=== PATIENT | female | born 1935 | race Caucasian/White ===

== ENCOUNTER 2016-12-22 15:35 | Inpatient (IN) | payer MEDICARE ==
[2016-12-22] MEDS ORDERED: Melatonin 3 MG TAB PO PRN (17:23)
[2016-12-22] MEDS: Gabapentin 100 MG CAP PO SCH (20:51)
[2016-12-22] MEDS: Ferrous Gluconate 324 MG TAB PO SCH (20:51)
[2016-12-22] MEDS: Apixaban 5 MG TAB PO SCH (20:51)
[2016-12-22] MEDS: traMADol HCl 50 MG TAB PO PRN (23:53)
[2016-12-23] MEDS: Apixaban 5 MG TAB PO SCH ×2 (08:58→21:44)
[2016-12-23] MEDS: Nebivolol HCl 5 MG TAB PO SCH (08:59)
[2016-12-23] MEDS: Ferrous Gluconate 324 MG TAB PO SCH ×2 (08:59→21:44)
[2016-12-23] MEDS: Multivit, Therapeutic 1 TAB PO SCH (09:00)
[2016-12-23] MEDS: traMADol HCl 50 MG TAB PO PRN (11:25)
[2016-12-23] MEDS ORDERED: [UNRECOGNIZED DRUG - OTHER] SSW PRN ×4 (18:35)
[2016-12-23] MEDS ORDERED: ALUMINUM SSW PRN ×4 (18:35)
[2016-12-23] MEDS ORDERED: MAGNESIUM HYDROXIDE SSW PRN ×4 (18:35)
[2016-12-23] MEDS ORDERED: DIPHENHYDRAMINE HCL SSW PRN ×4 (18:35)
[2016-12-23] MEDS: Gabapentin 100 MG CAP PO SCH (21:45)
[2016-12-24] MEDS: traMADol HCl 50 MG TAB PO PRN ×3 (00:28→13:50)
--- NOTE | 2016-12-24 04:10 | HP ---
PRIMARY CARE PHYSICIAN: Kelsi Grullon M.D. ADMITTING PHYSICIAN: Macey Vazquez M.D. CHIEF COMPLAINT: Inpatient rehab with prison care, physical, and occupational therapy, status post revision of left total hip. HISTORY OF PRESENT ILLNESS: Ms. Doan is a pleasant 81-year-old female with history of paroxysmal atrial fibrillation on chronic anticoagulation , hypertension, hyperlipidemia, and gastroesophageal reflux disease. 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 Espinoza Anaya. On review of history, she had a remote left hip surgery about 20 years ago and has been having intermittent left hip pain. Recently, she had sudden severe pain on her left thigh with difficulty in ambulation. She consulted Dr. Anaya and was in form of the deterioration of left hip and needing immediate surgery. She had uneventful operation. She started physical therapy on 12/15/2016 and was working on transfer; however, she developed hypotension and hypoxemia during therapy. She was subsequently referred to hospitalist group and Dr. Nair. They held the blood pressure medication due to her borderline hypertension. Her blood pressure gradually normalized. During that time, she developed neurogenic bladder, indwelling catheter was placed. The patient required minimal assist from supine to sleeping, moderate assistance from sitting to standing and from bed to chair transfers. Prior to her transfer, she is standing using rolling walker with 25% weightbearing on left lower extremity. She has decreased mobility, endurance, poor gait, has poor range of motion, decreased strength and decreased transfer ability. She will continue with physical and occupational therapy prior to transitioning to half-way versus assisted living with Home Health with physical therapy. She was transferred to our facility on 12/22/2016. Today, she reports poor appetite, requesting to discontinue the indwelling catheter. She reported that today was far better therapy since her surgery. She is also complaining of sensitivity to her mouth, with no obvious lesions. PAST MEDICAL HISTORY: 1. Paroxysmal atrial fibrillation. 2. Hypertension. 3. Hyperlipidemia. 4. Gastroesophageal reflux disease. 5. Obesity. 6. Mild cognitive impairment. 7. Degenerative joint disease. 8. History of venous insufficiency. 9. History of hyperglycemia. 10. History of TIA. SOCIAL HISTORY: Elderly living alone. Nonsmoker, nonalcoholic drinker. She lives independently in [place], she has a daughter that lives in [place]. She uses a cane occasionally for support. ALLERGIES: 1. CODEINE causing hallucinations. 2. ERYTHROMYCIN causing inflammation of gums and roof of mouth. 3. PENICILLIN. FAMILY HISTORY: Father due to natural causes. Mother due to kidney disease. Has a daughter and healthy. PAST SURGICAL HISTORY: 1. Recent revision of left total hip. 2. Left total hip replacement in 1995. 2. Right total hip replacement in 1998. 3. Spine surgery. 4. Tonsillectomy. 5. Appendectomy. 6. Fistula. 7. Cataract surgery. 8. Cervical fusion. MEDICATIONS: 1. Tylenol 650 mg q.6 h. p.r.n. for pain. 2. Eliquis 2.5 mg b.i.d. 3. Ferrous sulfate 324 mg b.i.d. 4. Neurontin 100 mg at bedtime. 5. Melatonin 3 mg at bedtime p.r.n. for insomnia. 6. Multivitamins daily. 7. Bystolic 5 mg daily. 8. Benicar 20 mg daily. 9. Protonix 40 mg daily. 10. Tramadol 50 mg at bedtime. REVIEW OF SYSTEMS: GENERAL: Patient denies fever, positive for decreased appetite. Denies any weight loss or gain. HEENT: No headaches. Positive for blurred vision. Positive for sensitivity in the buccal mucosa and gums. CARDIOVASCULAR: No chest pain. No palpitation. Positive for irregular heartbeat. RESPIRATORY: Denies shortness of breath. Denies wheezing. GASTROINTESTINAL: Positive for decreased appetite. No nausea, vomiting or diarrhea. No constipation. GENITOURINARY: Positive for indwelling catheter. Denies dysuria. Denies hematuria. INTEGUMENT: No rash or lesions. PSYCHIATRIC: Denies anxiety. Denies depression. NEUROLOGIC: Positive for memory loss. Negative for seizures. MUSCULOSKELETAL: Positive for left hip pain secondary to recent surgery. Denies weakness. PHYSICAL EXAMINATION: VITAL SIGNS: Blood pressure of 126/72, heart rate of 72, respiratory rate of 18 , O2 sat 94% on room air, and temperature of 98.9. GENERAL: The patient is alert and oriented, not in respiratory distress. HEENT: Normocephalic, atraumatic. Pupils equally reactive to light. Buccal mucosa negative for ulceration, negative for bleeding. No lesions. NECK: Supple. Negative for lymphadenopathy. CARDIOVASCULAR: Irregularly irregular. No murmur, rubs or gallops. CHEST AND LUNGS: Symmetrical expansion. Clear to auscultation bilaterally. GASTROINTESTINAL: Flat, soft, nontender, and normoactive bowel sounds. Negative for deep or rebound tenderness. Negative for CVA tenderness. MUSCULOSKELETAL: Positive for left hip incision, decreased range of motion of left lower extremity. NEUROLOGIC: Nonfocal. Moves all extremities. LYMPHATICS: No lymphadenopathies. PSYCHIATRIC: Appropriate affect and demeanor. Alert and oriented x3. SKIN: No rash. Capillary refill less than 2 seconds. LABORATORY: Reviewed. ASSESSMENT AND PLAN: 1. Left hip pain, status post revision of left total hip postop day #9. 2. History of hypotension, improved. 3. Paroxysmal atrial fibrillation. 4. Hypertension. 5. Hyperlipidemia. 6. Anemia. 7. Gastroesophageal reflux disease. 8. Neurogenic bladder with indwelling catheter. 9. Cognitive impairment. 10. Speech difficulty. 11. History of transient ischemic attack. 12. Degenerative joint disease. 13. Obesity. 14. History of hyperglycemia. 15. Venous insufficiency. PLAN: 1. The patient was admitted for physical, occupational, and speech therapy. Prognosis for significant improvement with discernible time appears excellent. Due to her comorbid condition, we will monitor for infection, bleeding, worsening pain, and side effects of medication. She will participate with physical therapy to address strength, range of motion, transfer, gait training, and family training with progression to home versus nursing facility placement. She will participate with OT to address activities of daily living. She will also be seen by Speech Therapy to evaluate speech impairment. We will reconcile hospital medication and adjust dosage prior to her discharge. Case management to address how patient can be discharged safely in a timely manner. 2. We will discontinue indwelling catheter and start bladder draining. 3. Continue deep vein thrombosis prophylaxis with SCDs. 4. Weekly CBC and comp met. 5. Routine nursing care. 6. Anticipate discharge to half-way in the next 2-3 weeks. JYOTSNA
[2016-12-24] MEDS: Multivit, Therapeutic 1 TAB PO SCH (08:42)
[2016-12-24] MEDS: Apixaban 5 MG TAB PO SCH ×2 (08:43→21:11)
[2016-12-24] MEDS: Ferrous Gluconate 324 MG TAB PO SCH ×2 (08:44→21:11)
[2016-12-24] MEDS: Nebivolol HCl 5 MG TAB PO SCH (08:45)
[2016-12-24] MEDS: Gabapentin 100 MG CAP PO SCH (21:12)
[2016-12-25] MEDS: traMADol HCl 50 MG TAB PO PRN ×3 (02:16→23:13)
[2016-12-25 06:01] LABS: Hemoglobin 10.8 g/dL (12.0-16.0); Platelet Count 312 thou/uL (130-400)
[2016-12-25] MEDS: Multivit, Therapeutic 1 TAB PO SCH (09:05)
[2016-12-25] MEDS: Nebivolol HCl 5 MG TAB PO SCH (09:05)
[2016-12-25] MEDS: Apixaban 5 MG TAB PO SCH ×2 (09:05→20:57)
[2016-12-25] MEDS: Ferrous Gluconate 324 MG TAB PO SCH ×2 (09:05→17:47)
[2016-12-25] MEDS: Gabapentin 100 MG CAP PO SCH (20:56)
[2016-12-26] MEDS: Acetaminophen 325 MG TAB PO PRN (00:24)
[2016-12-26] MEDS: Apixaban 5 MG TAB PO SCH ×2 (09:15→20:55)
[2016-12-26] MEDS: Multivit, Therapeutic 1 TAB PO SCH (09:15)
[2016-12-26] MEDS: Ferrous Gluconate 324 MG TAB PO SCH ×2 (09:15→17:51)
[2016-12-26] MEDS: Nebivolol HCl 5 MG TAB PO SCH (09:15)
[2016-12-26] MEDS: traMADol HCl 50 MG TAB PO PRN ×3 (09:24→22:19)
[2016-12-26] MEDS: Gabapentin 100 MG CAP PO SCH (20:55)
[2016-12-27] MEDS: Acetaminophen 325 MG TAB PO PRN ×2 (04:03→17:05)
[2016-12-27] MEDS: Apixaban 5 MG TAB PO SCH ×2 (09:03→21:01)
[2016-12-27] MEDS: Ferrous Gluconate 324 MG TAB PO SCH ×2 (09:05→17:59)
[2016-12-27] MEDS: Multivit, Therapeutic 1 TAB PO SCH (09:05)
[2016-12-27] MEDS: Nebivolol HCl 5 MG TAB PO SCH (09:05)
[2016-12-27] MEDS: traMADol HCl 50 MG TAB PO PRN ×2 (09:06→14:39)
[2016-12-27] MEDS: Gabapentin 100 MG CAP PO SCH (21:00)
[2016-12-28] MEDS: traMADol HCl 50 MG TAB PO PRN ×4 (00:54→20:11)
[2016-12-28] MEDS: Acetaminophen 325 MG TAB PO PRN ×2 (01:51→08:19)
[2016-12-28 06:14] LABS: Hemoglobin 10.4 g/dL (12.0-16.0); Platelet Count 382 thou/uL (130-400)
[2016-12-28] MEDS: Apixaban 5 MG TAB PO SCH ×2 (08:17→20:11)
[2016-12-28] MEDS: Multivit, Therapeutic 1 TAB PO SCH (08:17)
[2016-12-28] MEDS: Nebivolol HCl 5 MG TAB PO SCH (08:19)
[2016-12-28] MEDS: Ferrous Gluconate 324 MG TAB PO SCH ×2 (08:19→18:11)
[2016-12-28] MEDS ORDERED: Melatonin 3 MG TAB PO PRN (10:20)
[2016-12-28] MEDS: Acetaminophen 500 MG TAB PO PRN ×2 (14:00→20:12)
[2016-12-28] MEDS: Gabapentin 100 MG CAP PO SCH (20:11)
[2016-12-29] MEDS: traMADol HCl 50 MG TAB PO PRN ×3 (04:39→20:46)
[2016-12-29] MEDS: Acetaminophen 500 MG TAB PO PRN ×2 (04:41→11:04)
[2016-12-29] MEDS: Multivit, Therapeutic 1 TAB PO SCH (08:27)
[2016-12-29] MEDS: Docusate 100 MG CAP PO SCH (08:27)
[2016-12-29] MEDS: Ferrous Gluconate 324 MG TAB PO SCH ×2 (08:27→18:02)
[2016-12-29] MEDS: Apixaban 5 MG TAB PO SCH ×2 (08:27→20:47)
[2016-12-29] MEDS: Nebivolol HCl 5 MG TAB PO SCH (08:28)
[2016-12-29] MEDS ORDERED: Cyclobenzaprine 10 MG TAB PO PRN (12:15)
[2016-12-29] MEDS: Gabapentin 100 MG CAP PO SCH (20:48)
[2016-12-30] MEDS: Acetaminophen 500 MG TAB PO PRN ×3 (00:18→22:39)
[2016-12-30] MEDS: traMADol HCl 50 MG TAB PO PRN ×3 (05:43→20:35)
[2016-12-30 05:47] LABS: Hemoglobin 10.5 g/dL (12.0-16.0); Platelet Count 381 thou/uL (130-400)
[2016-12-30] MEDS: Docusate 100 MG CAP PO SCH (08:29)
[2016-12-30] MEDS: Ferrous Gluconate 324 MG TAB PO SCH ×2 (08:29→18:09)
[2016-12-30] MEDS: Multivit, Therapeutic 1 TAB PO SCH (08:29)
[2016-12-30] MEDS: Nebivolol HCl 5 MG TAB PO SCH (08:30)
[2016-12-30] MEDS: Apixaban 5 MG TAB PO SCH ×2 (08:30→20:35)
[2016-12-30] MEDS: Gabapentin 100 MG CAP PO SCH (20:35)
[2016-12-31] MEDS: Apixaban 5 MG TAB PO SCH ×2 (09:17→21:15)
[2016-12-31] MEDS: Multivit, Therapeutic 1 TAB PO SCH (09:17)
[2016-12-31] MEDS: Docusate 100 MG CAP PO SCH (09:17)
[2016-12-31] MEDS: Nebivolol HCl 5 MG TAB PO SCH (09:17)
[2016-12-31] MEDS: Ferrous Gluconate 324 MG TAB PO SCH ×2 (09:17→18:02)
[2016-12-31] MEDS: traMADol HCl 50 MG TAB PO PRN ×2 (09:32→21:15)
[2016-12-31] MEDS: Gabapentin 100 MG CAP PO SCH (21:15)
[2016-12-31] MEDS: Acetaminophen 500 MG TAB PO PRN (23:14)
[2017-01-01] MEDS: traMADol HCl 50 MG TAB PO PRN ×3 (05:30→20:23)
[2017-01-01 05:57] LABS: Hemoglobin 10.7 g/dL (12.0-16.0); Platelet Count 395 thou/uL (130-400)
[2017-01-01] MEDS: Apixaban 5 MG TAB PO SCH ×2 (08:51→20:23)
[2017-01-01] MEDS: Docusate 100 MG CAP PO SCH (08:53)
[2017-01-01] MEDS: Multivit, Therapeutic 1 TAB PO SCH (08:53)
[2017-01-01] MEDS: Ferrous Gluconate 324 MG TAB PO SCH ×2 (08:53→18:36)
[2017-01-01] MEDS: Nebivolol HCl 5 MG TAB PO SCH (08:54)
[2017-01-01] MEDS: Nystatin Powder 15 GM BOT TOP PRN ×2 (15:09→20:22)
[2017-01-01] MEDS: Gabapentin 100 MG CAP PO SCH (20:22)
[2017-01-02] MEDS: Apixaban 5 MG TAB PO SCH ×2 (08:50→21:26)
[2017-01-02] MEDS: Ferrous Gluconate 324 MG TAB PO SCH ×2 (08:51→17:56)
[2017-01-02] MEDS: Docusate 100 MG CAP PO SCH (08:51)
[2017-01-02] MEDS: Multivit, Therapeutic 1 TAB PO SCH (08:52)
[2017-01-02] MEDS: Nebivolol HCl 5 MG TAB PO SCH (08:52)
[2017-01-02] MEDS: traMADol HCl 50 MG TAB PO PRN ×3 (08:53→22:13)
[2017-01-02] MEDS: Nystatin Powder 15 GM BOT TOP PRN ×2 (10:00→21:31)
[2017-01-02] MEDS: Gabapentin 100 MG CAP PO SCH (21:26)
[2017-01-03 05:37] LABS: #Basophils 0.1 thou/uL (0.0-0.2); #Eosinphils 0.3 thou/uL (0.0-0.7); #Lymphocytes 2.4 thou/uL (1.20-3.40); #Neutrophils 3.6 thou/uL (1.40-6.50); %Basophils 1.7 % (0.0-1.0); %Eosinophils 3.5 % (0.0-10.0); %Lymphocytes 33.2 % (21.0-51.0); %Monocytes 12.9 % (0.0-10.0); %Neutrophils 48.7 % (42.0-75.0); Hemoglobin 10.8 g/dL (12.0-16.0); Mean Corpuscular HGB CONC 33.2 g/dL (32.0-36.0); Mean Corpuscular Hemoglobin 31.3 pg (27.0-31.0); Mean Corpuscular Volume 94.2 fl (81.0-99.0); Mean Platelet Volume 6.9 fL (7.4-10.4); Platelet Count 370 thou/uL (130-400); RBC Distribution Width 12.4 % (11.5-14.5); Red Blood Cell (RBC) Count 3.45 mill/uL (4.20-5.40); White Blood Cell (WBC) Count 7.3 thou/uL (4.8-10.8)
[2017-01-03 05:52] LABS: ALT (SGPT) 11 U/L (8-55); AST (SGOT) 15 U/L (5-34); Albumin 3.1 g/dL (3.4-4.8); Alkaline Phosphatase 90 U/L (40-150); Anion Gap 12 mmol/L (10-20); BUN (Urea Nitrogen) 15 mg/dL (9.8-20.1); Bilirubin, Total 0.4 mg/dL (0.2-1.2); Calc. Creatinine Clearance 80 mL/min (70-130); Calcium 8.8 mg/dL (7.8-10.44); Carbon Dioxide 27 mmol/L (23-31); Chloride 101 mmol/L (98-107); Estimated GFR-MDRD 72; Globulin 2.7 g/dL (2.4-3.5); Glucose 100 mg/dL (83-110); Potassium 4.2 mmol/L (3.5-5.1); Protein, Total 5.8 g/dL (6.0-8.3); Sodium 136 mmol/L (136-145)
[2017-01-03] MEDS ORDERED: traMADol HCl 50 MG TAB ONE (09:48)
[2017-01-03] MEDS: Multivit, Therapeutic 1 TAB PO SCH (09:56)
[2017-01-03] MEDS: Ferrous Gluconate 324 MG TAB PO SCH ×2 (09:56→17:15)
[2017-01-03] MEDS: Apixaban 5 MG TAB PO SCH ×2 (09:56→21:31)
[2017-01-03] MEDS: Docusate 100 MG CAP PO SCH (09:56)
[2017-01-03] MEDS: Nebivolol HCl 5 MG TAB PO SCH (09:56)
[2017-01-03] MEDS: traMADol HCl 50 MG TAB PO PRN (09:58)
[2017-01-03] MEDS: Cyclobenzaprine 10 MG TAB PO PRN (17:14)
[2017-01-03] MEDS: Gabapentin 100 MG CAP PO SCH (21:31)
[2017-01-04] MEDS: traMADol HCl 50 MG TAB PO PRN ×2 (03:05→22:52)
[2017-01-04] MEDS: Apixaban 5 MG TAB PO SCH ×2 (08:11→20:24)
[2017-01-04] MEDS: Ferrous Gluconate 324 MG TAB PO SCH ×2 (08:11→18:07)
[2017-01-04] MEDS: Multivit, Therapeutic 1 TAB PO SCH (08:11)
[2017-01-04] MEDS: Docusate 100 MG CAP PO SCH (08:11)
[2017-01-04] MEDS: Nebivolol HCl 5 MG TAB PO SCH (08:11)
[2017-01-04] MEDS: Cyclobenzaprine 10 MG TAB PO PRN ×2 (13:50→20:27)
[2017-01-04] MEDS: Gabapentin 100 MG CAP PO SCH (20:24)
[2017-01-05] MEDS ORDERED: Adacel (T-DAP) 0.5 ML VIAL ONE (04:57)
[2017-01-05 06:24] LABS: Platelet Count 377 thou/uL (130-400)
[2017-01-05] MEDS: Ferrous Gluconate 324 MG TAB PO SCH ×2 (07:52→18:24)
[2017-01-05] MEDS: traMADol HCl 50 MG TAB PO PRN ×2 (07:53→14:32)
[2017-01-05] MEDS: Nebivolol HCl 5 MG TAB PO SCH (07:54)
[2017-01-05] MEDS: Multivit, Therapeutic 1 TAB PO SCH (07:54)
[2017-01-05] MEDS: Apixaban 5 MG TAB PO SCH ×2 (07:54→21:38)
[2017-01-05] MEDS: Docusate 100 MG CAP PO SCH (07:54)
[2017-01-05] MEDS: Gabapentin 100 MG CAP PO SCH (21:38)
[2017-01-05] MEDS: Cyclobenzaprine 10 MG TAB PO PRN (21:38)
[2017-01-06] MEDS: traMADol HCl 50 MG TAB PO PRN ×2 (02:20→21:09)
[2017-01-06] MEDS: Apixaban 5 MG TAB PO SCH ×2 (09:01→21:07)
[2017-01-06] MEDS: Ferrous Gluconate 324 MG TAB PO SCH ×2 (09:01→18:24)
[2017-01-06] MEDS: Multivit, Therapeutic 1 TAB PO SCH (09:01)
[2017-01-06] MEDS: Docusate 100 MG CAP PO SCH (09:01)
[2017-01-06] MEDS: Nebivolol HCl 5 MG TAB PO SCH (09:02)
[2017-01-06] MEDS: Fluconazole 100 MG TAB PO SCH (09:02)
[2017-01-06] MEDS: Gabapentin 100 MG CAP PO SCH (21:08)
[2017-01-06] MEDS: Cyclobenzaprine 10 MG TAB PO PRN (21:09)
[2017-01-06] MEDS: Nystatin Powder 15 GM BOT TOP PRN (21:31)
[2017-01-07] MEDS: Docusate 100 MG CAP PO SCH (09:30)
[2017-01-07] MEDS: Apixaban 5 MG TAB PO SCH ×2 (09:30→20:29)
[2017-01-07] MEDS: Fluconazole 100 MG TAB PO SCH (09:30)
[2017-01-07] MEDS: Nebivolol HCl 5 MG TAB PO SCH (09:30)
[2017-01-07] MEDS: Multivit, Therapeutic 1 TAB PO SCH (09:31)
[2017-01-07] MEDS: Ferrous Gluconate 324 MG TAB PO SCH ×2 (09:31→17:37)
[2017-01-07] MEDS: traMADol HCl 50 MG TAB PO PRN ×2 (09:37→20:38)
[2017-01-07] MEDS: Gabapentin 100 MG CAP PO SCH (20:29)
[2017-01-07] MEDS: Nystatin Powder 15 GM BOT TOP PRN (20:31)
[2017-01-07] MEDS: Cyclobenzaprine 10 MG TAB PO PRN (20:40)
[2017-01-08] MEDS: Fluconazole 100 MG TAB PO SCH (09:24)
[2017-01-08] MEDS: Apixaban 5 MG TAB PO SCH ×2 (09:24→20:15)
[2017-01-08] MEDS: Docusate 100 MG CAP PO SCH (09:24)
[2017-01-08] MEDS: Ferrous Gluconate 324 MG TAB PO SCH ×2 (09:24→17:34)
[2017-01-08] MEDS: Nebivolol HCl 5 MG TAB PO SCH (09:24)
[2017-01-08] MEDS: Multivit, Therapeutic 1 TAB PO SCH (09:25)
[2017-01-08] MEDS: Cyclobenzaprine 10 MG TAB PO PRN ×2 (13:18→20:15)
[2017-01-08] MEDS: traMADol HCl 50 MG TAB PO PRN ×2 (13:19→20:15)
--- NOTE | 2017-01-08 14:11 | PRG ---
DATE OF SERVICE: 12/30/2016 DATE OF ADMISSION: 12/22/2016 SUBJECTIVE: The patient is complaining of pain and spasms affecting her left leg, she is weightbear ing of about 25% on her left lower extremity. Patient still requires minimal assistance on bed mobi lity, requires moderate assistance on scooting towards edge of the bed, requires maximum assistance from sitting to standing position and from bed to chair transfer. She also requires maximum assista nce from chair to bed transfer. For physical therapy, patient has decreased balance, she fatigued e asily. She has moderate pain during treatment and needs to be premedicated for pain prior to her ph ysical therapy. OBJECTIVE: VITAL SIGNS: Blood pressure of 108/54, temperature of 98.3, pulse of 95, respiratory rate 20, O2 sa t 97% on room air. GENERAL: Patient is awake, alert, oriented, not in respiratory distress. HEENT: Normocephalic, atraumatic. Pupils equally reactive to light. NECK: Supple, negative for JVD. Negative for lymphadenopathy. CARDIOVASCULAR: Irregularly irregular. No murmur, rubs or gallops. CHEST AND LUNGS: Symmetrical expansion. Clear to auscultation bilaterally. GASTROINTESTINAL: Flat, soft, nontender, normoactive bowel sounds. MUSCULOSKELETAL: Positive for left hip incision with decreased range of motion of left lower extrem ity, minimal pain on range of motion. NEUROLOGIC: Nonfocal, moves all extremities. LYMPHATICS: No lymphadenopathies. PSYCHIATRIC: Appropriate affect and demeanor. Alert and oriented x3. SKIN: No rash. Capillary refill less than 2 seconds. LABORATORY DATA: Reviewed. ASSESSMENT: 1. Left hip pain with spasm, status post revision of left hip, postoperative day #17. 2. History of hypertension. 3. Paroxysmal atrial fibrillation. 4. Hyperlipidemia. 5. Anemia. 6. Gastroesophageal reflux disease. 7. Neurogenic bladder, resolved. 8. Cognitive impairment. 9. Speech difficulty. 10. History of transient ischemic attack. 11. Degenerative joint disease. 12. Obesity. 13. History of hyperglycemia. 14. Venous insufficiency. PLAN: 1. Patient will continue with physical and occupational therapy. She is still 25% weightbearing on left lower extremity. She will continue to participate with therapy to address strength, range of motion, gait training, and family training with progression to home versus long-term placement. 2. Patient is doing well with urination, catheter was successfully discontinued. 3. Continue deep vein thrombosis prophylaxis with sequential compression devices, patient is on blo od thinner. 4. Weekly CBC and comprehensive metabolic panel. 5. Routine long-term care. 6. Anticipate discharge in the next 2-3 weeks.
[2017-01-08] MEDS: Gabapentin 100 MG CAP PO SCH (20:15)
[2017-01-08] MEDS: Nystatin Powder 15 GM BOT TOP PRN (20:19)
[2017-01-09] MEDS: Apixaban 5 MG TAB PO SCH ×2 (08:22→22:59)
[2017-01-09] MEDS: Ferrous Gluconate 324 MG TAB PO SCH ×2 (08:22→17:40)
[2017-01-09] MEDS: Docusate 100 MG CAP PO SCH (08:22)
[2017-01-09] MEDS: Nebivolol HCl 5 MG TAB PO SCH (08:22)
[2017-01-09] MEDS: Fluconazole 100 MG TAB PO SCH (08:23)
[2017-01-09] MEDS: Multivit, Therapeutic 1 TAB PO SCH (08:23)
[2017-01-09] MEDS: Cyclobenzaprine 10 MG TAB PO PRN ×2 (14:22→22:59)
[2017-01-09] MEDS: traMADol HCl 50 MG TAB PO PRN ×2 (15:35→22:59)
[2017-01-09] MEDS ORDERED: traMADol HCl 50 MG TAB ONE (22:59)
[2017-01-09] MEDS: Gabapentin 100 MG CAP PO SCH (22:59)
[2017-01-10] MEDS: traMADol HCl 50 MG TAB PO PRN ×2 (08:09→20:12)
[2017-01-10] MEDS: Nebivolol HCl 5 MG TAB PO SCH (08:30)
[2017-01-10] MEDS: Docusate 100 MG CAP PO SCH (08:30)
[2017-01-10] MEDS: Ferrous Gluconate 324 MG TAB PO SCH ×2 (08:30→17:47)
[2017-01-10] MEDS: Apixaban 5 MG TAB PO SCH ×2 (08:30→20:14)
[2017-01-10] MEDS: Fluconazole 100 MG TAB PO SCH (08:30)
[2017-01-10] MEDS: Multivit, Therapeutic 1 TAB PO SCH (08:31)
[2017-01-10] MEDS: Cyclobenzaprine 10 MG TAB PO PRN ×2 (12:34→20:13)
[2017-01-10] MEDS: Acetaminophen 500 MG TAB PO PRN (12:34)
[2017-01-10] MEDS: Gabapentin 100 MG CAP PO SCH (20:12)
[2017-01-11] MEDS: Apixaban 5 MG TAB PO SCH ×2 (07:55→20:49)
[2017-01-11] MEDS: Multivit, Therapeutic 1 TAB PO SCH (07:55)
[2017-01-11] MEDS: Acetaminophen 500 MG TAB PO PRN (07:56)
[2017-01-11] MEDS: Docusate 100 MG CAP PO SCH (07:56)
[2017-01-11] MEDS: traMADol HCl 50 MG TAB PO PRN (07:56)
[2017-01-11] MEDS: Nebivolol HCl 5 MG TAB PO SCH (07:57)
[2017-01-11] MEDS: Ferrous Gluconate 324 MG TAB PO SCH ×2 (07:57→18:00)
[2017-01-11] MEDS: Fluconazole 100 MG TAB PO SCH (07:57)
[2017-01-11] MEDS: Gabapentin 100 MG CAP PO SCH (20:49)
[2017-01-12] MEDS: traMADol HCl 50 MG TAB PO PRN ×3 (03:33→20:00)
[2017-01-12] MEDS: Cyclobenzaprine 10 MG TAB PO PRN ×2 (03:34→20:01)
[2017-01-12 07:23] LABS: Hemoglobin 11.2 g/dL (12.0-16.0); Platelet Count 283 thou/uL (130-400)
[2017-01-12] MEDS: Apixaban 5 MG TAB PO SCH ×2 (08:54→20:01)
[2017-01-12] MEDS: Docusate 100 MG CAP PO SCH (08:55)
[2017-01-12] MEDS: Nebivolol HCl 5 MG TAB PO SCH (08:55)
[2017-01-12] MEDS: Ferrous Gluconate 324 MG TAB PO SCH ×2 (08:55→18:00)
[2017-01-12] MEDS: Multivit, Therapeutic 1 TAB PO SCH (08:55)
[2017-01-12] MEDS: Fluconazole 100 MG TAB PO SCH (08:55)
[2017-01-12] MEDS: Acetaminophen 500 MG TAB PO PRN (10:06)
[2017-01-12] MEDS: Gabapentin 100 MG CAP PO SCH (20:01)
[2017-01-13] MEDS: Fluconazole 100 MG TAB PO SCH (08:39)
[2017-01-13] MEDS: Apixaban 5 MG TAB PO SCH ×2 (08:39→20:33)
[2017-01-13] MEDS: Nebivolol HCl 5 MG TAB PO SCH (08:40)
[2017-01-13] MEDS: Ferrous Gluconate 324 MG TAB PO SCH ×2 (08:40→17:28)
[2017-01-13] MEDS: Multivit, Therapeutic 1 TAB PO SCH (08:40)
[2017-01-13] MEDS: Docusate 100 MG CAP PO SCH (08:46)
[2017-01-13] MEDS: traMADol HCl 50 MG TAB PO PRN ×2 (09:12→17:24)
[2017-01-13] MEDS: Cyclobenzaprine 10 MG TAB PO PRN (17:27)
[2017-01-13] MEDS: Gabapentin 100 MG CAP PO SCH (20:35)
[2017-01-14] MEDS: traMADol HCl 50 MG TAB PO PRN ×3 (04:07→18:04)
[2017-01-14] MEDS: Docusate 100 MG CAP PO SCH (09:19)
[2017-01-14] MEDS: Apixaban 5 MG TAB PO SCH ×2 (09:20→20:45)
[2017-01-14] MEDS: Multivit, Therapeutic 1 TAB PO SCH (09:20)
[2017-01-14] MEDS: Ferrous Gluconate 324 MG TAB PO SCH ×2 (09:21→18:06)
[2017-01-14] MEDS: Nebivolol HCl 5 MG TAB PO SCH (09:21)
--- NOTE | 2017-01-14 14:33 | PRG ---
DATE OF SERVICE: 01/05/2017 DATE OF ADMISSION: 12/22/2016 SUBJECTIVE: The patient is improving with her walking. She ambulated between 12-56 feet for the [address] st 3 days with light contact guard assist and partial weightbearing on left leg. She increased her gait distance yesterday, but felt very fatigued afterwards, she had trouble with sequencing towards the end. She had some difficulty with planning and following commands for transfer. She saw Dr. Yeny barr this morning and was advised to continue 25% weightbearing on the affected lower extremity for the next 4 weeks, he reported that there was no evidence of healing at this time. She is not safe t o be transferred for senior living. OBJECTIVE: VITAL SIGNS: Blood pressure of 113/69, O2 sat 94% at room air, respiratory rate of 18, heart rate o f 83, and temperature of 97.6. GENERAL: Patient is alert, oriented, not in distress. HEENT: Normocephalic, atraumatic. Pupils equally reactive to light. NECK: Supple. Negative for lymphadenopathy. CARDIOVASCULAR: Irregularly irregular. No murmurs, rubs or gallops. CHEST AND LUNGS: Symmetrical expansion. Clear to auscultation bilaterally. GASTROINTESTINAL: Flat, soft, and nontender, normoactive bowel sounds. MUSCULOSKELETAL: Positive for left hip incision, clean, dry, and intact. Decreased range of motion of the left lower extremity, mild pain on range of motion. NEUROLOGIC: Nonfocal, moves all extremities. LYMPHATICS: No lymphadenopathy. PSYCHIATRIC: Appropriate affect and demeanor, alert, oriented x3. SKIN: No rashes, no lesions. LABORATORY DATA: Reviewed, stable. ASSESSMENT: 1. Left hip pain status post revision of left hip, postoperative day #23. 2. History of hypertension. 3. Paroxysmal atrial fibrillation. 4. Hyperlipidemia. 5. Anemia. 6. Gastroesophageal reflux disease. 7. Neurogenic bladder, resolved. 8. Cognitive impairment. 9. Speech difficulty. 10. Gait disturbance. 11. Degenerative joint disease. 12. Obesity. 13. History of hyperglycemia. 14. Venous insufficiency. Patient will continue with physical and occupational therapy. She will continue with 25% weightbearing on left lower extremity per Dr. Anaya's notes. There is still no i mprovement and healing on the affected extremity. Physical Therapy will continue to address strengt h, range of motion, gait training to transition her to a senior living placement. 15. Continue deep venous prophylaxis with sequential compression devices. Patient is presently higinio ing Soha. 16. Weekly CBC and comprehensive metabolic panel. 17. Routine senior living care. 18. Anticipate discharge to senior living in the next 4 weeks.
[2017-01-14] MEDS ORDERED: Cyclobenzaprine 10 MG TAB PO SCH (20:00)
[2017-01-14] MEDS: Nystatin Powder 15 GM BOT TOP PRN (20:44)
[2017-01-14] MEDS: Gabapentin 100 MG CAP PO SCH (20:44)
[2017-01-15] MEDS: traMADol HCl 50 MG TAB PO PRN (02:27)
[2017-01-15] MEDS: Docusate 100 MG CAP PO SCH (08:36)
[2017-01-15] MEDS: Multivit, Therapeutic 1 TAB PO SCH (08:36)
[2017-01-15] MEDS: Ferrous Gluconate 324 MG TAB PO SCH ×2 (08:36→17:55)
[2017-01-15] MEDS: Nebivolol HCl 5 MG TAB PO SCH (08:37)
[2017-01-15] MEDS: Apixaban 5 MG TAB PO SCH ×2 (08:37→21:24)
[2017-01-15] MEDS ORDERED: Cyclobenzaprine 10 MG TAB PO SCH (20:00)
[2017-01-15] MEDS: Gabapentin 100 MG CAP PO SCH (21:24)
[2017-01-15] MEDS: Cyclobenzaprine 10 MG TAB PO SCH (21:25)
[2017-01-16] MEDS: traMADol HCl 50 MG TAB PO PRN ×2 (00:25→14:15)
[2017-01-16] MEDS: Multivit, Therapeutic 1 TAB PO SCH (09:20)
[2017-01-16] MEDS: Docusate 100 MG CAP PO SCH (09:20)
[2017-01-16] MEDS: Nebivolol HCl 5 MG TAB PO SCH (09:20)
[2017-01-16] MEDS: Ferrous Gluconate 324 MG TAB PO SCH ×2 (09:21→17:37)
[2017-01-16] MEDS: Apixaban 5 MG TAB PO SCH ×2 (09:21→20:58)
[2017-01-16] MEDS: Gabapentin 100 MG CAP PO SCH (20:57)
[2017-01-16] MEDS: Cyclobenzaprine 10 MG TAB PO SCH (20:57)
[2017-01-17] MEDS: traMADol HCl 50 MG TAB PO PRN ×2 (06:23→12:11)
[2017-01-17] MEDS: Docusate 100 MG CAP PO SCH (09:12)
[2017-01-17] MEDS: Nebivolol HCl 5 MG TAB PO SCH (09:12)
[2017-01-17] MEDS: Multivit, Therapeutic 1 TAB PO SCH (09:12)
[2017-01-17] MEDS: Ferrous Gluconate 324 MG TAB PO SCH ×2 (09:12→18:01)
[2017-01-17] MEDS: Apixaban 5 MG TAB PO SCH ×2 (09:13→20:34)
[2017-01-17] MEDS: Acetaminophen 500 MG TAB PO PRN (12:12)
[2017-01-17] MEDS: Ondansetron ODT 4 MG TAB PO PRN (18:47)
[2017-01-17] MEDS: Gabapentin 100 MG CAP PO SCH (20:33)
[2017-01-17] MEDS: Cyclobenzaprine 10 MG TAB PO SCH (20:34)
[2017-01-18 08:16] LABS: Bilirubin Negative (Negative); Blood, Urine Trace (Negative); Clarity Slightly Cloudy (Clear); Glucose, Urine (Dipstick) Negative (Negative); Leukocyte Large (Negative); Nitrite Negative (Negative); Protein, Urine (Dipstick) Negative (Neg-Trace); Urobilinogen 0.2 mg/dL (0.2-1.0)
[2017-01-18 08:35] LABS: Bacteria/HPF 1+ HPF (None Seen); Crystals/HPF RARE AMORPH URATES HPF (Negative); RBC/HPF 0-3 HPF (0-3); Squamous Epithelial 0-3 HPF (0-3)
[2017-01-18] MEDS: Ferrous Gluconate 324 MG TAB PO SCH ×2 (08:48→17:34)
[2017-01-18] MEDS: Nebivolol HCl 5 MG TAB PO SCH (08:48)
[2017-01-18] MEDS: Acetaminophen 500 MG TAB PO PRN (08:49)
[2017-01-18] MEDS: Multivit, Therapeutic 1 TAB PO SCH (08:50)
[2017-01-18] MEDS: Docusate 100 MG CAP PO SCH (08:50)
[2017-01-18] MEDS: traMADol HCl 50 MG TAB PO PRN (08:51)
[2017-01-18] MEDS: Apixaban 5 MG TAB PO SCH ×2 (08:51→20:47)
[2017-01-18] MEDS: Bisacodyl 10 MG SUPP PR PRN (17:34)
[2017-01-18] MEDS: Cyclobenzaprine 10 MG TAB PO SCH (20:49)
[2017-01-18] MEDS: Gabapentin 100 MG CAP PO SCH (20:49)
[2017-01-19] MEDS: traMADol HCl 50 MG TAB PO PRN ×3 (00:49→19:45)
[2017-01-19 05:28] LABS: Hemoglobin 10.7 g/dL (12.0-16.0); Platelet Count 239 thou/uL (130-400)
[2017-01-19 08:32] LABS: ALT (SGPT) 11 U/L (8-55); AST (SGOT) 15 U/L (5-34); Alkaline Phosphatase 76 U/L (40-150); Anion Gap 17 mmol/L (10-20); BUN (Urea Nitrogen) 22 mg/dL (9.8-20.1); Bilirubin, Total 0.5 mg/dL (0.2-1.2); Calc. Creatinine Clearance 59 mL/min (70-130); Calcium 8.8 mg/dL (7.8-10.44); Carbon Dioxide 23 mmol/L (23-31); Chloride 94 mmol/L (98-107); Estimated GFR-MDRD 54; Globulin 2.7 g/dL (2.4-3.5); Glucose 99 mg/dL (83-110); Potassium 4.8 mmol/L (3.5-5.1); Protein, Total 5.7 g/dL (6.0-8.3); Sodium 129 mmol/L (136-145)
[2017-01-19] MEDS: Nebivolol HCl 5 MG TAB PO SCH ×2 (09:27→09:36)
[2017-01-19] MEDS: Ferrous Gluconate 324 MG TAB PO SCH ×3 (09:28→17:55)
[2017-01-19] MEDS: Multivit, Therapeutic 1 TAB PO SCH (09:28)
[2017-01-19] MEDS: Apixaban 5 MG TAB PO SCH ×2 (09:28→22:20)
[2017-01-19] MEDS: Docusate 100 MG CAP PO SCH (09:28)
[2017-01-19] MEDS: Polyethylene Glycol 3350 17 GM Packet PO PRN (09:47)
[2017-01-19] MEDS ORDERED: Cyclobenzaprine 10 MG TAB PO PRN (11:27)
[2017-01-19] MEDS: Ondansetron ODT 4 MG TAB PO PRN (18:44)
[2017-01-19] MEDS: Cyclobenzaprine 10 MG TAB PO SCH (19:45)
[2017-01-19] MEDS: Bisacodyl 10 MG SUPP PR PRN (21:14)
[2017-01-19] MEDS: Gabapentin 100 MG CAP PO SCH (22:20)
[2017-01-20] MEDS: traMADol HCl 50 MG TAB PO PRN ×2 (01:44→22:04)
[2017-01-20] MEDS: Ferrous Gluconate 324 MG TAB PO SCH ×2 (08:12→18:00)
[2017-01-20] MEDS: Docusate 100 MG CAP PO SCH (08:13)
[2017-01-20] MEDS: Apixaban 5 MG TAB PO SCH ×2 (08:13→20:16)
[2017-01-20] MEDS: Multivit, Therapeutic 1 TAB PO SCH (08:14)
[2017-01-20] MEDS: Nebivolol HCl 5 MG TAB PO SCH (08:14)
[2017-01-20] MEDS: Milk Of Magnesia 30 ML UDCUP PO PRN (09:45)
[2017-01-20] MEDS: Gabapentin 100 MG CAP PO SCH (20:16)
[2017-01-20] MEDS: Cyclobenzaprine 10 MG TAB PO SCH (20:17)
[2017-01-20] MEDS: Nystatin Powder 15 GM BOT TOP PRN (20:18)
[2017-01-21] MEDS: Ferrous Gluconate 324 MG TAB PO SCH ×2 (09:49→20:09)
[2017-01-21] MEDS: Multivit, Therapeutic 1 TAB PO SCH (09:50)
[2017-01-21] MEDS: Docusate 100 MG CAP PO SCH (09:51)
[2017-01-21] MEDS: Apixaban 5 MG TAB PO SCH ×2 (09:51→20:28)
[2017-01-21] MEDS: Nebivolol HCl 5 MG TAB PO SCH (10:08)
[2017-01-21] MEDS: Acetaminophen 500 MG TAB PO PRN ×2 (10:50→23:24)
[2017-01-21] MEDS: Gabapentin 100 MG CAP PO SCH (20:27)
[2017-01-21] MEDS: Cyclobenzaprine 10 MG TAB PO SCH (20:28)
[2017-01-21] MEDS: Nystatin Powder 15 GM BOT TOP PRN (20:30)
[2017-01-22] MEDS: traMADol HCl 50 MG TAB PO PRN ×2 (00:56→16:17)
[2017-01-22] MEDS: Ferrous Gluconate 324 MG TAB PO SCH ×2 (10:17→17:35)
[2017-01-22] MEDS: Apixaban 5 MG TAB PO SCH ×2 (10:18→20:55)
[2017-01-22] MEDS: Docusate 100 MG CAP PO SCH (10:20)
[2017-01-22] MEDS: Multivit, Therapeutic 1 TAB PO SCH (10:20)
[2017-01-22] MEDS: Nebivolol HCl 5 MG TAB PO SCH (10:20)
--- NOTE | 2017-01-22 15:28 | PRG ---
DATE OF SERVICE: 01/13/2017 SUBJECTIVE: The patient is doing well. She has no acute concerns. She is participating well with physical therapy, still has decreased weightbearing on her left lower extremity to about 25% as advi sed by Dr. Anaya, she is ambulating using double bars, rolling walker and flat forms with rolling w alker. She is able to maintain weight bearing, but experiences fatigue when using flat form. She w ill continue with rolling walker for short distances and flat forms to build strength and endurance. We are still having problems at night with her muscle spasms on her left leg, she requires Tramado l 100 mg and Flexeril 5 mg at night. OBJECTIVE: VITAL SIGNS: Blood pressure of 108/68, temperature of 97.8, pulse of 90, respiratory rate of 18, 02 sat 95% on room air. GENERAL: Patient is alert, oriented, not in distress, obese. HEENT: Normocephalic, atraumatic. Pupils equally reactive to light. NECK: Supple. Negative for lymphadenopathy. CHEST AND LUNGS: Symmetrical expansion. Clear to auscultation. HEART: Regular rate and rhythm. Negative for murmur. ABDOMEN: Flat, soft, nontender, normoactive bowel sounds. MUSCULOSKELETAL: Good range of motion of left lower extremity, mild pain on flexion and extension. NEUROLOGIC: Nonfocal, moves all extremities. LYMPHATICS: No lymphadenopathy. PSYCHIATRIC: Appropriate affect and demeanor. SKIN: No rashes, no lesions. LABORATORY: Creatinine of 0.86, GFR of 63. Hemoglobin of 11.2, hematocrit of 33.7, platelet count of 283. ASSESSMENT AND PLAN: 1. Left hip pain secondary to revision of left hip, postoperative day #31. 2. History of hypertension. 3. Paroxysmal atrial fibrillation. 4. Hyperlipidemia. 5. Anemia. 6. Gastroesophageal reflux disease. 7. Neurogenic bladder, resolved. 8. Cognitive impairment. 9. Speech difficulty. 10. Gait disturbance. 11. Degenerative joint disease. 12. Obesity. 13. History of hyperglycemia. 14. Venous insufficiency. 15. The patient will continue with physical and occupational therapy. She will continue with 25% w eightbearing on left lower extremity per Dr. Anaya's advise. Physical therapy will continue to add ress strength, range of motion, gait training, and transition for her to safely transition to [facility]. 16. Continue deep venous thrombosis prophylaxis with sequential compression devices. Patient is maynor Hoyos. 17. Weekly CBC, and comprehensive metabolic panel. 18. Routine penitentiary care. 19. Anticipate discharge in the next 3 weeks.
[2017-01-22] MEDS: Cyclobenzaprine 10 MG TAB PO SCH (20:55)
[2017-01-22] MEDS: Gabapentin 100 MG CAP PO SCH (20:55)
[2017-01-22] MEDS: Nystatin Powder 15 GM BOT TOP PRN (20:58)
[2017-01-23] MEDS: Multivit, Therapeutic 1 TAB PO SCH (09:23)
[2017-01-23] MEDS: Nebivolol HCl 5 MG TAB PO SCH (09:24)
[2017-01-23] MEDS: Ferrous Gluconate 324 MG TAB PO SCH ×2 (09:25→18:11)
[2017-01-23] MEDS: Docusate 100 MG CAP PO SCH (09:26)
[2017-01-23] MEDS: Apixaban 5 MG TAB PO SCH ×2 (09:26→20:47)
[2017-01-23] MEDS: traMADol HCl 50 MG TAB PO PRN (15:25)
[2017-01-23] MEDS: Gabapentin 100 MG CAP PO SCH (20:47)
[2017-01-23] MEDS: Cyclobenzaprine 10 MG TAB PO SCH (20:48)
[2017-01-24] MEDS: Apixaban 5 MG TAB PO SCH ×2 (08:49→20:43)
[2017-01-24] MEDS: Multivit, Therapeutic 1 TAB PO SCH (08:49)
[2017-01-24] MEDS: Docusate 100 MG CAP PO SCH (08:49)
[2017-01-24] MEDS: Nebivolol HCl 5 MG TAB PO SCH (08:51)
[2017-01-24] MEDS: Ferrous Gluconate 324 MG TAB PO SCH ×2 (08:51→18:18)
[2017-01-24] MEDS: traMADol HCl 50 MG TAB PO PRN (09:14)
[2017-01-24] MEDS: Cyclobenzaprine 10 MG TAB PO SCH (20:44)
[2017-01-24] MEDS: Gabapentin 100 MG CAP PO SCH (20:44)
[2017-01-25] MEDS: traMADol HCl 50 MG TAB PO PRN ×2 (03:40→09:32)
[2017-01-25] MEDS: Ferrous Gluconate 324 MG TAB PO SCH (09:26)
[2017-01-25] MEDS: Nebivolol HCl 5 MG TAB PO SCH (09:27)
[2017-01-25] MEDS: Docusate 100 MG CAP PO SCH (09:28)
[2017-01-25] MEDS: Multivit, Therapeutic 1 TAB PO SCH (09:28)
[2017-01-25] MEDS: Acetaminophen 500 MG TAB PO PRN (09:31)
[2017-01-25] MEDS: Apixaban 5 MG TAB PO SCH ×2 (09:31→21:24)
[2017-01-25 09:54] LABS: #Basophils 0.1 thou/uL (0.0-0.2); #Eosinphils 0.2 thou/uL (0.0-0.7); #Lymphocytes 2.6 thou/uL (1.20-3.40); #Monocytes 0.8 thou/uL (0.11-0.59); #Neutrophils 3.5 thou/uL (1.40-6.50); %Basophils 1.2 % (0.0-1.0); %Eosinophils 2.8 % (0.0-10.0); %Lymphocytes 36.6 % (21.0-51.0); %Monocytes 11.1 % (0.0-10.0); %Neutrophils 48.3 % (42.0-75.0); Hemoglobin 12.2 g/dL (12.0-16.0); Mean Corpuscular HGB CONC 32.7 g/dL (32.0-36.0); Mean Corpuscular Hemoglobin 30.5 pg (27.0-31.0); Mean Corpuscular Volume 93.3 fl (81.0-99.0); Mean Platelet Volume 7.1 fL (7.4-10.4); Platelet Count 296 thou/uL (130-400); RBC Distribution Width 11.9 % (11.5-14.5); White Blood Cell (WBC) Count 7.2 thou/uL (4.8-10.8)
[2017-01-25 10:08] LABS: ALT (SGPT) 9 U/L (8-55); AST (SGOT) 13 U/L (5-34); Albumin 3.5 g/dL (3.4-4.8); Alkaline Phosphatase 78 U/L (40-150); Anion Gap 15 mmol/L (10-20); BUN (Urea Nitrogen) 14 mg/dL (9.8-20.1); Bilirubin, Total 0.6 mg/dL (0.2-1.2); Calc. Creatinine Clearance 65 mL/min (70-130); Calcium 9.4 mg/dL (7.8-10.44); Carbon Dioxide 28 mmol/L (23-31); Chloride 97 mmol/L (98-107); Estimated GFR-MDRD 60; Globulin 3.2 g/dL (2.4-3.5); Glucose 121 mg/dL (83-110); Potassium 4.2 mmol/L (3.5-5.1); Protein, Total 6.7 g/dL (6.0-8.3); Sodium 136 mmol/L (136-145)
[2017-01-25] MEDS: Cyclobenzaprine 10 MG TAB PO SCH (21:23)
[2017-01-25] MEDS: Gabapentin 100 MG CAP PO SCH (21:25)
[2017-01-26 06:38] LABS: Hemoglobin 10.9 g/dL (12.0-16.0); Platelet Count 253 thou/uL (130-400)
[2017-01-26] MEDS: Docusate 100 MG CAP PO SCH (09:07)
[2017-01-26] MEDS: Apixaban 5 MG TAB PO SCH ×2 (09:07→20:44)
[2017-01-26] MEDS: Multivit, Therapeutic 1 TAB PO SCH (09:07)
[2017-01-26] MEDS: Ferrous Sulfate 325 MG TAB PO SCH (09:07)
[2017-01-26] MEDS: Nebivolol HCl 5 MG TAB PO SCH (09:08)
[2017-01-26] MEDS: traMADol HCl 50 MG TAB PO PRN (14:11)
[2017-01-26] MEDS: Gabapentin 100 MG CAP PO SCH (20:43)
[2017-01-26] MEDS: Cyclobenzaprine 10 MG TAB PO SCH (20:43)
[2017-01-27] MEDS: Nebivolol HCl 5 MG TAB PO SCH (09:57)
[2017-01-27] MEDS: Docusate 100 MG CAP PO SCH (09:57)
[2017-01-27] MEDS: Multivit, Therapeutic 1 TAB PO SCH (09:58)
[2017-01-27] MEDS: Apixaban 5 MG TAB PO SCH ×2 (09:58→21:25)
[2017-01-27] MEDS: Ferrous Sulfate 325 MG TAB PO SCH (09:59)
[2017-01-27] MEDS ORDERED: Nitrofurantoin Monohyd/M-Cryst 100 MG CAP ONE (12:20)
[2017-01-27] MEDS: Nitrofurantoin Monohyd/M-Cryst 100 MG CAP PO SCH ×2 (14:05→21:25)
[2017-01-27] MEDS: Cyclobenzaprine 10 MG TAB PO SCH (21:25)
[2017-01-27] MEDS: Gabapentin 100 MG CAP PO SCH (21:25)
[2017-01-27] MEDS: traMADol HCl 50 MG TAB PO PRN (22:57)
[2017-01-28] MEDS: Hyoscyamine Sulfate SL 0.125 mg Tablet SL PRN ×2 (00:18→20:59)
[2017-01-28] MEDS: traMADol HCl 50 MG TAB PO PRN (08:56)
[2017-01-28] MEDS: Ferrous Sulfate 325 MG TAB PO SCH (08:58)
[2017-01-28] MEDS: Nitrofurantoin Monohyd/M-Cryst 100 MG CAP PO SCH ×2 (08:58→20:38)
[2017-01-28] MEDS: Nebivolol HCl 5 MG TAB PO SCH (08:58)
[2017-01-28] MEDS: Multivit, Therapeutic 1 TAB PO SCH (08:58)
[2017-01-28] MEDS: Docusate 100 MG CAP PO SCH (08:58)
[2017-01-28] MEDS: Apixaban 5 MG TAB PO SCH ×2 (09:00→20:38)
--- NOTE | 2017-01-28 16:44 | PRG ---
DATE OF SERVICE: 01/22/2017 SUBJECTIVE: Patient had episode of nausea and vomiting and severe constipation earlier this week, she was not feeling well. She had a decreased appetite; however, she is passing gas. She finally had a bowel movement after a trial of laxatives, stool softeners and soaps suds enema. Patient also complained of burning urination. Her urinalysis was showing large amount of leukocyte esterase with urine WBC and +1 bacteria. She was empirically treated with Levaquin; however, her urine culture was negative, it was discontinued after 4 days. Today, she denies any complaints. Her appetite is back to baseline. Patient is tolerating physical therapy. She is still 25% weightbearing on left lower extremity. OBJECTIVE: VITAL SIGNS: Blood pressure of 94/58, temperature of 98, O2 sat 97% on room air , respiratory rate of 18, pulse of 91. GENERAL: Patient is alert, oriented, not in respiratory distress. HEENT: Normocephalic, atraumatic. Pupils equally reactive to light. NECK: Supple. Negative for lymphadenopathy. CHEST AND LUNGS: Symmetrical expansion. Clear to auscultation. HEART: Regular rate and rhythm. Negative for murmur. ABDOMEN: Flat, soft, nontender. MUSCULOSKELETAL: Good range of motion of both lower extremities, positive for pain on flexion and extension of left hip. NEUROLOGIC: Nonfocal, moves all extremities. LYMPHATICS: No lymphadenopathy. PSYCHIATRIC: Appropriate affect and demeanor. SKIN: No rashes, no lesions. LABORATORY AND X-RAY FINDINGS: Hemoglobin of 10.7, hematocrit of 31.5, platelet count of 232. Sodium of 129, potassium of 4.8, chloride of 94, BUN of 22. Serum total protein of 5.7, albumin of 3.0. ASSESSMENT: 1. Left hip pain secondary to revision of left hip, postoperative day #40. 2. History of hypertension. 3. Paroxysmal atrial fibrillation. 4. Hyperlipidemia. 5. Mild anemia. 6. Constipation, improved. 7. Dysuria with negative urine culture. 8. Gastroesophageal reflux disease. 9. Neurogenic bladder, resolved. 10. Cognitive impairment. 11. Speech difficulty. 12. Gait disturbance. 13. Degenerative joint disease. 14. Obesity. 15. History of hyperglycemia. 16. Venous insufficiency. PLAN: 1. Patient will continue with physical and occupational therapy. She will continue with 25% weightbearing on lower extremity per Dr. Anaya. She will continue with physical therapy to address strength, range of motion and gait training to safely transition her to the long term. 2. Adjusted blood pressure medication with parameters. 3. P.r.n. medication to prevent constipation. 4. Weekly CBC and CMP. 5. Routine long term care. 6. Anticipate discharge in the next 2 to 3 weeks. JYOTSNA
[2017-01-28] MEDS: Cyclobenzaprine 10 MG TAB PO SCH (20:38)
[2017-01-28] MEDS: Gabapentin 100 MG CAP PO SCH (20:38)
[2017-01-29] MEDS: Ferrous Sulfate 325 MG TAB PO SCH (08:52)
[2017-01-29] MEDS: Apixaban 5 MG TAB PO SCH ×2 (08:52→20:32)
[2017-01-29] MEDS: Docusate 100 MG CAP PO SCH (08:53)
[2017-01-29] MEDS: Nebivolol HCl 5 MG TAB PO SCH (08:53)
[2017-01-29] MEDS: Multivit, Therapeutic 1 TAB PO SCH (08:53)
[2017-01-29] MEDS: Nitrofurantoin Monohyd/M-Cryst 100 MG CAP PO SCH ×2 (08:54→20:32)
[2017-01-29] MEDS: Cyclobenzaprine 10 MG TAB PO SCH (20:32)
[2017-01-29] MEDS: Gabapentin 100 MG CAP PO SCH (20:32)
[2017-01-29] MEDS: Hyoscyamine Sulfate SL 0.125 mg Tablet SL PRN (23:42)
[2017-01-30] MEDS: Ferrous Sulfate 325 MG TAB PO SCH (08:46)
[2017-01-30] MEDS: Apixaban 5 MG TAB PO SCH ×2 (08:47→20:56)
[2017-01-30] MEDS: Nebivolol HCl 5 MG TAB PO SCH (08:48)
[2017-01-30] MEDS: Docusate 100 MG CAP PO SCH (08:48)
[2017-01-30] MEDS: Multivit, Therapeutic 1 TAB PO SCH (08:48)
[2017-01-30] MEDS: Nitrofurantoin Monohyd/M-Cryst 100 MG CAP PO SCH ×2 (08:49→20:56)
[2017-01-30] MEDS: traMADol HCl 50 MG TAB PO PRN ×2 (08:52→21:03)
[2017-01-30] MEDS: Ondansetron ODT 4 MG TAB PO PRN (08:56)
[2017-01-30] MEDS: Gabapentin 100 MG CAP PO SCH (20:56)
[2017-01-30] MEDS: Cyclobenzaprine 10 MG TAB PO SCH (20:57)
[2017-01-31] MEDS: Ferrous Sulfate 325 MG TAB PO SCH (10:08)
[2017-01-31] MEDS: Docusate 100 MG CAP PO SCH (10:09)
[2017-01-31] MEDS: Apixaban 5 MG TAB PO SCH ×2 (10:09→21:17)
[2017-01-31] MEDS: Nitrofurantoin Monohyd/M-Cryst 100 MG CAP PO SCH ×2 (10:10→21:16)
[2017-01-31] MEDS: Multivit, Therapeutic 1 TAB PO SCH (10:10)
[2017-01-31] MEDS: Nebivolol HCl 5 MG TAB PO SCH (10:11)
[2017-01-31] MEDS: Milk Of Magnesia 30 ML UDCUP PO PRN (16:08)
[2017-01-31] MEDS: Gabapentin 100 MG CAP PO SCH (21:16)
[2017-01-31] MEDS: Cyclobenzaprine 10 MG TAB PO SCH (21:18)
[2017-02-01] MEDS: traMADol HCl 50 MG TAB PO PRN ×3 (04:15→21:23)
[2017-02-01] MEDS: Nebivolol HCl 5 MG TAB PO SCH (08:29)
[2017-02-01] MEDS: Ferrous Sulfate 325 MG TAB PO SCH (08:29)
[2017-02-01] MEDS: Apixaban 5 MG TAB PO SCH ×2 (08:29→21:22)
[2017-02-01] MEDS: Nitrofurantoin Monohyd/M-Cryst 100 MG CAP PO SCH ×2 (08:30→21:20)
[2017-02-01] MEDS: Docusate 100 MG CAP PO SCH (08:30)
[2017-02-01] MEDS: Multivit, Therapeutic 1 TAB PO SCH (08:30)
[2017-02-01] MEDS: Milk Of Magnesia 30 ML UDCUP PO PRN (12:34)
[2017-02-01] MEDS ORDERED: Nystatin Powder 15 GM BOT TOP PRN (12:58)
[2017-02-01] MEDS: Cyclobenzaprine 10 MG TAB PO SCH (21:21)
[2017-02-01] MEDS: Gabapentin 100 MG CAP PO SCH (21:23)
[2017-02-02] MEDS: Apixaban 5 MG TAB PO SCH ×2 (08:49→20:34)
[2017-02-02] MEDS: Docusate 100 MG CAP PO SCH (08:49)
[2017-02-02] MEDS: Multivit, Therapeutic 1 TAB PO SCH (08:49)
[2017-02-02] MEDS: Nebivolol HCl 5 MG TAB PO SCH (08:50)
[2017-02-02] MEDS: Nitrofurantoin Monohyd/M-Cryst 100 MG CAP PO SCH ×2 (08:51→20:34)
[2017-02-02] MEDS: Ferrous Sulfate 325 MG TAB PO SCH (08:51)
[2017-02-02] MEDS: traMADol HCl 50 MG TAB PO PRN ×2 (12:28→18:50)
[2017-02-02] MEDS: Gabapentin 100 MG CAP PO SCH (20:34)
[2017-02-02] MEDS: Cyclobenzaprine 10 MG TAB PO SCH (20:35)
[2017-02-03] MEDS: Nebivolol HCl 5 MG TAB PO SCH (08:24)
[2017-02-03] MEDS: Nitrofurantoin Monohyd/M-Cryst 100 MG CAP PO SCH ×2 (08:25→20:48)
[2017-02-03] MEDS: Multivit, Therapeutic 1 TAB PO SCH (08:26)
[2017-02-03] MEDS: Apixaban 5 MG TAB PO SCH ×2 (08:27→20:50)
[2017-02-03] MEDS: Docusate 100 MG CAP PO SCH (08:27)
[2017-02-03] MEDS: Ferrous Sulfate 325 MG TAB PO SCH (08:28)
[2017-02-03] MEDS: traMADol HCl 50 MG TAB PO PRN ×2 (11:53→22:14)
[2017-02-03] MEDS: Cyclobenzaprine 10 MG TAB PO SCH (20:47)
[2017-02-03] MEDS: Gabapentin 100 MG CAP PO SCH (20:49)
[2017-02-03] MEDS ORDERED: DICLOFENAC 1% TOPICAL GEL TOP SCH (21:45)
--- NOTE | 2017-02-04 07:17 | PRG ---
DATE OF SERVICE: 01/28/2017 SUBJECTIVE: The patient denies any major concerns, she walked 180 feet today, required resting alayna ks using a rolling walker. She is still 25% partial weightbearing on left lower extremity, she walk ed about 300 feet yesterday. She plans to go to [facility] upon discharge. A few days ago, t he patient was complaining of burning on urination associated with bladder spasms. Urine culture wa s collected and grew E. coli. She was started on Macrobid. The patient is tolerating medication. She denies any fever or chills or abdominal pain. OBJECTIVE: VITAL SIGNS: Blood pressure of 96/52, pulse of 101, temperature of 97.6, respiratory rate 16, O2 sa t 97% on room air. GENERAL: The patient is alert, oriented, not in distress. HEENT: Normocephalic, atraumatic. Pupils equally reactive to light. NECK: Supple, negative for lymphadenopathy. CHEST AND LUNGS: Symmetrical expansion. Clear to auscultation. HEART: Regular rate and rhythm. Negative for murmur. ABDOMEN: Flat, soft, nontender. Negative for CVA tenderness. MUSCULOSKELETAL: Good range of motion on both lower extremities, denies any pain on range of motion . NEUROLOGIC: Nonfocal, moves all extremities, equal sensation. LYMPHATICS: No lymphadenopathy. PSYCHIATRIC: Appropriate affect and demeanor. SKIN: No rashes, no lesions. LABORATORY: Urine culture grew E. coli. ASSESSMENT: 1. Left hip pain secondary to a revision of left hip, postoperative day #47. 2. History of hypertension complicated by hypotension. 3. Paroxysmal atrial fibrillation. 4. Hyperlipidemia. 5. Mild anemia. 6. Urinary tract infection with Escherichia coli. 7. Gastroesophageal reflux disease. 8. Cognitive impairment. 9. Speech difficulty. 10. Gait disturbance. 11. Degenerative joint disease. 12. Obesity. 13. Hyperglycemia. 14. Venous insufficiency. PLAN: 1. The patient will continue physical and occupational therapy. She will continue with 25% weightb earing on left lower extremity. Physical Therapy will address strength, range of motion, gait train ing to safely transition her to half-way placement versus home: 2. Continue holding all blood pressure medication if systolic BP is less than 110. 3. P.r.n. medication for constipation. 4. Weekly CBC and CMP. 5. Routine half-way care. 6. Anticipate discharge in the next 2-3 weeks.
[2017-02-04] MEDS: traMADol HCl 50 MG TAB PO PRN (09:47)
[2017-02-04] MEDS: Apixaban 5 MG TAB PO SCH ×2 (09:49→20:48)
[2017-02-04] MEDS: Multivit, Therapeutic 1 TAB PO SCH (09:50)
[2017-02-04] MEDS: Docusate 100 MG CAP PO SCH (09:50)
[2017-02-04] MEDS: Ferrous Sulfate 325 MG TAB PO SCH (09:50)
[2017-02-04] MEDS: Nebivolol HCl 5 MG TAB PO SCH ×2 (09:51→09:57)
[2017-02-04] MEDS: Nitrofurantoin Monohyd/M-Cryst 100 MG CAP PO SCH ×2 (09:51→20:50)
[2017-02-04] MEDS: DICLOFENAC 1% TOPICAL GEL TOP SCH ×2 (09:58→20:55)
[2017-02-04] MEDS ORDERED: cloNIDine HCl 0.1 MG TAB PO PRN (12:01)
[2017-02-04] MEDS: Cyclobenzaprine 10 MG TAB PO SCH (20:51)
[2017-02-04] MEDS: Gabapentin 100 MG CAP PO SCH (20:52)
[2017-02-04] MEDS: Milk Of Magnesia 30 ML UDCUP PO PRN (20:59)
[2017-02-04] MEDS: Ondansetron ODT 4 MG TAB PO PRN (22:14)
[2017-02-05] MEDS: Nitrofurantoin Monohyd/M-Cryst 100 MG CAP PO SCH ×2 (09:38→21:09)
[2017-02-05] MEDS: Ferrous Sulfate 325 MG TAB PO SCH (09:38)
[2017-02-05] MEDS: Docusate 100 MG CAP PO SCH (09:38)
[2017-02-05] MEDS: Apixaban 5 MG TAB PO SCH ×2 (09:39→21:10)
[2017-02-05] MEDS: Multivit, Therapeutic 1 TAB PO SCH (09:39)
[2017-02-05] MEDS: Nebivolol HCl 5 MG TAB PO SCH (09:40)
[2017-02-05] MEDS: DICLOFENAC 1% TOPICAL GEL TOP SCH ×2 (09:42→21:13)
[2017-02-05] MEDS: Ondansetron ODT 4 MG TAB PO PRN (09:47)
[2017-02-05] MEDS: Cyclobenzaprine 10 MG TAB PO SCH (21:10)
[2017-02-05] MEDS: Gabapentin 100 MG CAP PO SCH (21:10)
[2017-02-06] MEDS: Nitrofurantoin Monohyd/M-Cryst 100 MG CAP PO SCH (09:01)
[2017-02-06] MEDS: Ferrous Sulfate 325 MG TAB PO SCH (09:02)
[2017-02-06] MEDS: Multivit, Therapeutic 1 TAB PO SCH (09:02)
[2017-02-06] MEDS: Apixaban 5 MG TAB PO SCH ×2 (09:02→21:04)
[2017-02-06] MEDS: Docusate 100 MG CAP PO SCH (09:02)
[2017-02-06] MEDS: Nebivolol HCl 5 MG TAB PO SCH (09:05)
[2017-02-06] MEDS: DICLOFENAC 1% TOPICAL GEL TOP SCH ×2 (09:13→21:06)
[2017-02-06] MEDS: Ondansetron ODT 4 MG TAB PO PRN (09:27)
[2017-02-06] MEDS: Milk Of Magnesia 30 ML UDCUP PO PRN (10:09)
[2017-02-06] MEDS: Bisacodyl 10 MG SUPP PR PRN (13:16)
[2017-02-06] MEDS: traMADol HCl 50 MG TAB PO PRN (20:59)
[2017-02-06] MEDS: Cyclobenzaprine 10 MG TAB PO SCH (21:00)
[2017-02-06] MEDS: Gabapentin 100 MG CAP PO SCH (21:05)
[2017-02-06] MEDS: Polyethylene Glycol 3350 17 GM Packet PO PRN (21:12)
[2017-02-07] MEDS: Docusate 100 MG CAP PO SCH (09:02)
[2017-02-07] MEDS: Ferrous Sulfate 325 MG TAB PO SCH (09:02)
[2017-02-07] MEDS: Multivit, Therapeutic 1 TAB PO SCH (09:03)
[2017-02-07] MEDS: Apixaban 5 MG TAB PO SCH ×2 (09:03→20:37)
[2017-02-07] MEDS: traMADol HCl 50 MG TAB PO PRN (09:05)
[2017-02-07] MEDS: Nebivolol HCl 5 MG TAB PO SCH (09:08)
[2017-02-07] MEDS: DICLOFENAC 1% TOPICAL GEL TOP SCH ×2 (09:09→20:46)
[2017-02-07] MEDS: Gabapentin 100 MG CAP PO SCH (20:38)
[2017-02-07] MEDS: Cyclobenzaprine 10 MG TAB PO SCH (20:38)
[2017-02-07] MEDS: Polyethylene Glycol 3350 17 GM Packet PO PRN (20:43)
[2017-02-08] MEDS: Docusate 100 MG CAP PO SCH (09:11)
[2017-02-08] MEDS: Acetaminophen 500 MG TAB PO PRN (09:11)
[2017-02-08] MEDS: Multivit, Therapeutic 1 TAB PO SCH (09:11)
[2017-02-08] MEDS: traMADol HCl 50 MG TAB PO PRN (09:11)
[2017-02-08] MEDS: Ferrous Sulfate 325 MG TAB PO SCH (09:11)
[2017-02-08] MEDS: Nebivolol HCl 5 MG TAB PO SCH (09:12)
[2017-02-08] MEDS: Apixaban 5 MG TAB PO SCH ×2 (09:13→20:28)
[2017-02-08] MEDS: DICLOFENAC 1% TOPICAL GEL TOP SCH ×2 (09:17→20:33)
[2017-02-08] MEDS ORDERED: cloNIDine HCl 0.1 MG TAB PO PRN (11:09)
[2017-02-08] MEDS: Gabapentin 100 MG CAP PO SCH (20:28)
[2017-02-08] MEDS: Polyethylene Glycol 3350 17 GM Packet PO PRN (20:29)
[2017-02-08] MEDS: Cyclobenzaprine 10 MG TAB PO SCH (20:31)
[2017-02-09 06:28] LABS: Hemoglobin 10.9 g/dL (12.0-16.0); Platelet Count 230 thou/uL (130-400)
[2017-02-09] MEDS: Apixaban 5 MG TAB PO SCH ×2 (09:19→20:54)
[2017-02-09] MEDS: Docusate 100 MG CAP PO SCH (09:20)
[2017-02-09] MEDS: Multivit, Therapeutic 1 TAB PO SCH (09:20)
[2017-02-09] MEDS: Ferrous Sulfate 325 MG TAB PO SCH (09:21)
[2017-02-09] MEDS: DICLOFENAC 1% TOPICAL GEL TOP SCH ×2 (09:22→20:57)
[2017-02-09] MEDS: Nebivolol HCl 5 MG TAB PO SCH (09:25)
[2017-02-09 10:50] VITALS: BMI 28.8
[2017-02-09] MEDS: Gabapentin 100 MG CAP PO SCH (20:54)
[2017-02-09] MEDS: Cyclobenzaprine 10 MG TAB PO SCH (20:55)
[2017-02-09] MEDS: Polyethylene Glycol 3350 17 GM Packet PO PRN (20:55)
[2017-02-09] MEDS: traMADol HCl 50 MG TAB PO PRN (22:59)
[2017-02-10] MEDS: Acetaminophen 500 MG TAB PO PRN (01:38)
[2017-02-10] MEDS: Ferrous Sulfate 325 MG TAB PO SCH (09:04)
[2017-02-10] MEDS: Apixaban 5 MG TAB PO SCH ×2 (09:05→20:43)
[2017-02-10] MEDS: Furosemide 20 MG TAB PO SCH (09:06)
[2017-02-10] MEDS: Docusate 100 MG CAP PO SCH (09:06)
[2017-02-10] MEDS: Multivit, Therapeutic 1 TAB PO SCH (09:06)
[2017-02-10] MEDS: Nebivolol HCl 5 MG TAB PO SCH (09:07)
[2017-02-10] MEDS: DICLOFENAC 1% TOPICAL GEL TOP SCH ×2 (09:10→20:52)
[2017-02-10] MEDS: Gabapentin 100 MG CAP PO SCH (20:41)
[2017-02-10] MEDS: Polyethylene Glycol 3350 17 GM Packet PO PRN (20:41)
[2017-02-10] MEDS: traMADol HCl 50 MG TAB PO PRN (20:41)
[2017-02-10] MEDS: Cyclobenzaprine 10 MG TAB PO SCH (20:43)
[2017-02-11] MEDS: Furosemide 20 MG TAB PO SCH (10:13)
[2017-02-11] MEDS: Ferrous Sulfate 325 MG TAB PO SCH (10:14)
[2017-02-11] MEDS: Multivit, Therapeutic 1 TAB PO SCH (10:14)
[2017-02-11] MEDS: Apixaban 5 MG TAB PO SCH ×2 (10:14→20:52)
[2017-02-11] MEDS: Docusate 100 MG CAP PO SCH (10:14)
[2017-02-11] MEDS: Nebivolol HCl 5 MG TAB PO SCH (10:16)
[2017-02-11] MEDS: DICLOFENAC 1% TOPICAL GEL TOP SCH ×2 (10:18→20:52)
[2017-02-11] MEDS: Cyclobenzaprine 10 MG TAB PO SCH (20:51)
[2017-02-11] MEDS: Polyethylene Glycol 3350 17 GM Packet PO PRN (20:51)
[2017-02-11] MEDS: Gabapentin 100 MG CAP PO SCH (20:52)
[2017-02-12] MEDS: traMADol HCl 50 MG TAB PO PRN (01:12)
[2017-02-12] MEDS: Apixaban 5 MG TAB PO SCH ×2 (09:30→20:59)
[2017-02-12] MEDS: Multivit, Therapeutic 1 TAB PO SCH (09:31)
[2017-02-12] MEDS: Docusate 100 MG CAP PO SCH (09:31)
[2017-02-12] MEDS: Ferrous Sulfate 325 MG TAB PO SCH (09:32)
[2017-02-12] MEDS: Furosemide 20 MG TAB PO SCH (09:32)
[2017-02-12] MEDS: DICLOFENAC 1% TOPICAL GEL TOP SCH ×2 (09:33→20:58)
[2017-02-12] MEDS: Nebivolol HCl 5 MG TAB PO SCH (09:33)
[2017-02-12] MEDS: Polyethylene Glycol 3350 17 GM Packet PO PRN (20:59)
[2017-02-12] MEDS: Gabapentin 100 MG CAP PO SCH (20:59)
[2017-02-12] MEDS: Cyclobenzaprine 10 MG TAB PO SCH (21:00)
[2017-02-13] MEDS: Multivit, Therapeutic 1 TAB PO SCH (09:51)
[2017-02-13] MEDS: Ferrous Sulfate 325 MG TAB PO SCH (09:51)
[2017-02-13] MEDS: Apixaban 5 MG TAB PO SCH ×2 (09:51→21:24)
[2017-02-13] MEDS: Docusate 100 MG CAP PO SCH (09:52)
[2017-02-13] MEDS: Nebivolol HCl 5 MG TAB PO SCH (09:58)
[2017-02-13] MEDS: DICLOFENAC 1% TOPICAL GEL TOP SCH ×2 (09:59→21:24)
[2017-02-13] MEDS: Gabapentin 100 MG CAP PO SCH (21:24)
[2017-02-13] MEDS: Cyclobenzaprine 10 MG TAB PO SCH (21:24)
[2017-02-14] MEDS: traMADol HCl 50 MG TAB PO PRN (00:07)
[2017-02-14] MEDS: Docusate 100 MG CAP PO SCH (09:11)
[2017-02-14] MEDS: Multivit, Therapeutic 1 TAB PO SCH (09:11)
[2017-02-14] MEDS: Ferrous Sulfate 325 MG TAB PO SCH (09:12)
[2017-02-14] MEDS: Apixaban 5 MG TAB PO SCH ×2 (09:12→20:59)
[2017-02-14] MEDS: Nebivolol HCl 5 MG TAB PO SCH (09:13)
[2017-02-14] MEDS: DICLOFENAC 1% TOPICAL GEL TOP SCH ×2 (09:14→20:58)
[2017-02-14] MEDS: Cyclobenzaprine 10 MG TAB PO SCH (20:59)
[2017-02-14] MEDS: Gabapentin 100 MG CAP PO SCH (20:59)
[2017-02-15] MEDS: Docusate 100 MG CAP PO SCH (09:26)
[2017-02-15] MEDS: Apixaban 5 MG TAB PO SCH ×2 (09:26→20:32)
[2017-02-15] MEDS: Ferrous Sulfate 325 MG TAB PO SCH (09:27)
[2017-02-15] MEDS: Multivit, Therapeutic 1 TAB PO SCH (09:28)
[2017-02-15] MEDS: Nebivolol HCl 5 MG TAB PO SCH (09:29)
[2017-02-15] MEDS: traMADol HCl 50 MG TAB PO PRN (09:30)
[2017-02-15] MEDS: DICLOFENAC 1% TOPICAL GEL TOP SCH ×2 (09:42→20:33)
[2017-02-15] MEDS: Cyclobenzaprine 10 MG TAB PO SCH (20:32)
[2017-02-15] MEDS: Gabapentin 100 MG CAP PO SCH (20:32)
[2017-02-16 05:11] LABS: Hemoglobin 11.5 g/dL (12.0-16.0); Platelet Count 237 thou/uL (130-400)
[2017-02-16] MEDS: Apixaban 5 MG TAB PO SCH ×2 (09:09→20:47)
[2017-02-16] MEDS: Ferrous Sulfate 325 MG TAB PO SCH (09:09)
[2017-02-16] MEDS: Multivit, Therapeutic 1 TAB PO SCH (09:10)
[2017-02-16] MEDS: Docusate 100 MG CAP PO SCH (09:11)
[2017-02-16] MEDS: DICLOFENAC 1% TOPICAL GEL TOP SCH ×2 (09:15→20:46)
[2017-02-16] MEDS: Nebivolol HCl 5 MG TAB PO SCH (09:18)
[2017-02-16] MEDS: Cyclobenzaprine 10 MG TAB PO SCH (20:47)
[2017-02-16] MEDS: Gabapentin 100 MG CAP PO SCH (20:47)
[2017-02-17] MEDS: Docusate 100 MG CAP PO SCH (08:58)
[2017-02-17] MEDS: Multivit, Therapeutic 1 TAB PO SCH (08:59)
[2017-02-17] MEDS: Apixaban 5 MG TAB PO SCH ×2 (08:59→20:26)
[2017-02-17] MEDS: Ferrous Sulfate 325 MG TAB PO SCH (08:59)
[2017-02-17] MEDS: Nebivolol HCl 5 MG TAB PO SCH (09:00)
[2017-02-17] MEDS: DICLOFENAC 1% TOPICAL GEL TOP SCH ×2 (09:02→20:27)
[2017-02-17] MEDS: traMADol HCl 50 MG TAB PO PRN (16:16)
[2017-02-17] MEDS ORDERED: Benzonatate 100 MG CAP PO PRN (19:01)
[2017-02-17] MEDS: Cyclobenzaprine 10 MG TAB PO SCH (20:26)
[2017-02-17] MEDS: Gabapentin 100 MG CAP PO SCH (20:26)
[2017-02-18 06:25] VITALS: BP 114/60; TEMP 97.9
[2017-02-18] MEDS: Apixaban 5 MG TAB PO SCH (08:16)
[2017-02-18] MEDS: Ferrous Sulfate 325 MG TAB PO SCH (08:16)
[2017-02-18] MEDS: Multivit, Therapeutic 1 TAB PO SCH (08:19)
[2017-02-18] MEDS: Nebivolol HCl 5 MG TAB PO SCH (08:20)
[2017-02-18] MEDS: Docusate 100 MG CAP PO SCH (08:20)
[2017-02-18] MEDS: DICLOFENAC 1% TOPICAL GEL TOP SCH (08:20)
[2017-02-18] MEDS ORDERED: Furosemide 20 MG TAB PO SCH (09:00)
[2017-02-18] MEDS: Acetaminophen 500 MG TAB PO PRN (15:44)
[2017-02-18] MEDS: traMADol HCl 50 MG TAB PO PRN (15:44)
== END 2017-02-18 16:25 | disposition home health service (06) | DRG 560 ==
LOC: BURMED 15:35
PROVIDERS: ADMIT Family Medicine; ATTEND Family Medicine
DX: Z47.1 Aftercare following joint replacement surgery (principal); N39.0 Urinary tract infection, site not specified; I95.9 Hypotension, unspecified; I48.0 Paroxysmal atrial fibrillation; D64.9 Anemia, unspecified; Z96.642 Presence of left artificial hip joint; I10 Essential (primary) hypertension; Z79.01 Long term (current) use of anticoagulants; E78.5 Hyperlipidemia, unspecified; K21.9 Gastro-esophageal reflux disease without esophagitis; N31.9 Neuromuscular dysfunction of bladder, unspecified; Z86.73 Personal history of transient ischemic attack (TIA), and cerebral infarction without residual deficits; E66.9 Obesity, unspecified; Z68.28 Body mass index [BMI] 28.0-28.9, adult; M19.90 Unspecified osteoarthritis, unspecified site; I87.2 Venous insufficiency (chronic) (peripheral); R26.9 Unspecified abnormalities of gait and mobility; R47.9 Unspecified speech disturbances; M62.838 Other muscle spasm; K59.00 Constipation, unspecified; B96.20 Unspecified Escherichia coli [E. coli] as the cause of diseases classified elsewhere; R73.9 Hyperglycemia, unspecified; Z88.0 Allergy status to penicillin; Z88.1 Allergy status to other antibiotic agents; Z88.5 Allergy status to narcotic agent; G31.84 Mild cognitive impairment of uncertain or unknown etiology; Z96.641 Presence of right artificial hip joint
CPT/HCPCS: 36415; 80053; 81001; 82565; 84550; 85014; 85018; 85025; 85049; 87077; 87086; 87186; 90715; A4353; G8978-GP-CK; G8979-GP-CI; G8987-GO-CL; G8988-GO-CI; G8996-GN-CI; G8997-GN-CI; Q0162